=== PATIENT | female | born 1970 | race Caucasian/White ===

== ENCOUNTER 2017-03-24 09:21 | Day surgery (SDC) | payer OTHER ==
[~2017-03-24] VITALS: Ht 157.5 cm; Wt 60.5 kg
[2017-03-24 10:14] VITALS: Ht 157.5 cm; Wt 60.5 kg
[2017-03-24 10:46] VITALS: BP 133/82; PULSE 69; RESP 18
[2017-03-24] MEDS ORDERED: FENTAnyl 50 MCG/ML VIAL ONE (11:23)
[2017-03-24] MEDS ORDERED: MIDAZOLAM 1 MG/ML 2 ML INJ ONE ×2 (11:23)
[2017-03-24 11:45] VITALS: BP 106/72; PULSE 63; RESP 19
--- NOTE | 2017-03-24 13:44 | GILP ---
DATE OF PROCEDURE: 03/24/2017 PROCEDURE PERFORMED: Colonoscopy. SURGEON: Oriana Franz MD PREOPERATIVE DIAGNOSES: 1. Change in bowel habits. 2. Lower abdominal pain. POSTOPERATIVE DIAGNOSES: 1. Colonoscopy all the way to the cecum. 2. Internal hemorrhoids. 3. No colon neoplasm was identified. INDICATION: The patient is a 47-year-old female patient who had lower abdominal pain and change in the bowel habits. The patient was scheduled for colonoscopy for further evaluation. The procedure and possible complications were well explained to the patient. She understood and consented to the procedure. DESCRIPTION OF PROCEDURE: Under the influence of fentanyl and Versed, the colonoscope was carefully introduced in the rectum. Under direct vision, it was advanced all the way to the cecum. Findings: The patient had internal hemorrhoids. No colitis or neoplasm was identified. She tolerated the procedure very well. There were no complications from the procedure. At the end of procedure, she was awake with stable vital signs and she was discharged home in care of her family. IMPRESSION: Please see postoperative diagnoses. PLAN: 1. Bentyl 10 mg p.o. t.i.d. p.r.n. for pain. 2. Next screening colonoscopy in 10 years. Dictated By: MD MARY KATE Hernandez/essence/yudi /Document#: [id number]
== END 2017-03-24 13:56 | disposition home or self-care (01) ==
LOC: GIL 09:21
PROVIDERS: ATTEND Internal Medicine Gastroenterology
DX: R19.4 Change in bowel habit (principal); K64.8 Other hemorrhoids; E11.9 Type 2 diabetes mellitus without complications
CPT/HCPCS: 45378; 82962; 84703; J2250; J3010